=== PATIENT | female | born 1990 ===

== ENCOUNTER 2018-08-22 14:18 | Emergency (ER) | payer MEDICAID ==
[2018-08-22 14:29] VITALS: BMI 29.2
[2018-08-22 14:32] VITALS: TEMP 98.1; O2SAT 100
[2018-08-22 15:19] LABS: HCG,QUALITATIVE URINE NEGATIVE (NEGATIVE)
[2018-08-22 15:21] LABS: SQUAMOUS EPITHIAL 11 /hpf (0-5); URINE BILIRUBIN NEGATIVE (NEGATIVE); URINE BLOOD NEGATIVE (NEGATIVE); URINE CLARITY Hazy (Clear); URINE COLOR Yellow (YELLOW); URINE GLUCOSE (UA) NORMAL (Normal); URINE LEUKOCYTE ESTERASE TRACE Leu/uL (Negative); URINE PROTEIN NEGATIVE (NEGATIVE); URINE UROBILINOGEN NORMAL mg/dL (0.2-1.0)
[2018-08-22 15:43] VITALS: BP 111/66; PULSE 63; RESP 16
--- NOTE | 2018-08-22 17:10 | C.PDOC ---
History Of Present Illness 28 year old female presents to the ED requesting test. She states that she had a positive test in May, but had mild spotting throughout June and in July had heavy bleeding, which has since resolved. She would like to know if she is still . Patient denies any current vaginal bleeding, pelvic pain, or abdominal pain. Time Seen by Provider: 08/22/18 14:34 Chief Complaint (Nursing): Female Genitourinary History Per: Patient History/Exam Limitations: no limitations Current Symptoms Are (Timing): Gone Associated Symptoms: denies: Other (abdominal pain, pelvic pain) Recent travel outside of the [place]: No Additional History Per: Patient Abnormal Vaginal Bleeding: No Past Medical History Reviewed: Historical Data, Nursing Documentation, Vital Signs Vital Signs: Last Vital Signs Temp 98.1 F 08/22/18 15:42 Pulse 63 08/22/18 15:42 Resp 16 08/22/18 15:42 BP 111/66 08/22/18 15:42 Pulse Ox 100 08/22/18 15:42 - Medical History PMH: No Chronic Diseases Surgical History: No Surg Hx Family History: States: No Known Family Hx - Social History Hx Alcohol Use: No Hx Substance Use: No - Immunization History Hx Tetanus Toxoid Vaccination: No (not sure of last tetanus) Hx Influenza Vaccination: No Hx Pneumococcal Vaccination: No Review Of Systems Gastrointestinal: Negative for: Nausea, Vomiting, Abdominal Pain, Diarrhea Genitourinary: Negative for: Dysuria, Hematuria, Vaginal Discharge, Vaginal Bleeding, Pelvic Pain Physical Exam - Physical Exam Appears: Well, Non-toxic, No Acute Distress Skin: Normal Color, Warm, Dry Oral Mucosa: Moist Cardiovascular: Rhythm Regular Respiratory: Normal Breath Sounds, No Rales, No Rhonchi, No Wheezing Gastrointestinal/Abdominal: Normal Exam, Bowel Sounds, Soft, No Tenderness Back: No CVA Tenderness Neurological/Psych: Oriented x3 ED Course And Treatment - Laboratory Results Lab Results: Urine Color Yellow (YELLOW) 08/22/18 15:07 Urine Clarity Hazy (Clear) 08/22/18 15:07 Urine pH 6.0 (5.0-8.0) 08/22/18 15:07 Ur Specific [place] 1.024 (1.003-1.030) 08/22/18 15:07 Urine Protein Negative mg/dL (NEGATIVE) 08/22/18 15:07 Urine Glucose (UA) Normal mg/dL (Normal) 08/22/18 15:07 Urine Ketones Negative mg/dL (NEGATIVE) 08/22/18 15:07 Urine Blood Negative (NEGATIVE) 08/22/18 15:07 Urine Nitrate Negative (NEGATIVE) 08/22/18 15:07 Urine Bilirubin Negative (NEGATIVE) 08/22/18 15:07 Urine Urobilinogen Normal mg/dL (0.2-1.0) 08/22/18 15:07 Ur Leukocyte Esterase Trace Wendy/uL (Negative) 08/22/18 15:07 Urine WBC (Auto) 2 /hpf (0-5) 08/22/18 15:07 Urine RBC (Auto) 1 /hpf (0-3) 08/22/18 15:07 Ur Squamous Epith Cells 11 /hpf (0-5) H 08/22/18 15:07 Urine HCG, Qual Negative (NEGATIVE) 08/22/18 15:07 Urine HCG, Qual Negative (NEGATIVE) 08/22/18 15:07 O2 Sat by Pulse Oximetry: 100 (on RA) Pulse Ox Interpretation: Normal Progress Note: Upreg ordered and reviewed. Test was negative. Patient informed of result and discharged home. She was instructed to follow up with PMD/clinic in 1-2 days, and understands she should return to ED if symptoms worsen. Disposition Counseled Patient/Family Regarding: Diagnosis, Need For Followup - Disposition Referrals: Mini Tristan MD [Medical Doctor] - Disposition: HOME/ ROUTINE Disposition Time: 15:40 Condition: STABLE Additional Instructions: FOLLOW UP WITH YOUR [employer] WITHIN 1 WEEK RETURN TO ER IF YOU HAVE ANY WORSENING SYMPTOMS Forms: [employer] (Faroese) Print Language: SLOVAK - Clinical Impression Clinical Impression: test negative - Scribe Statement The provider has reviewed the documentation as recorded by the Lizbeth Clancy All medical record entries made by the Chiomaibcaren were at my direction and personally dictated by me. I have reviewed the chart and agree that the record accurately reflects my personal performance of the history, physical exam, medical decision making, and the department course for this patient. I have also personally directed, reviewed, and agree with the discharge instructions and disposition.
== END 2018-08-22 16:04 | disposition home or self-care (01) ==
LOC: C.ER 14:18
DX: Z32.02 Encounter for pregnancy test, result negative (principal)